=== PATIENT | male | born 1955 | race Hispanic/Latino ===

== ENCOUNTER 2018-01-13 06:51 | Day surgery (SDC) | payer OTHER ==
[2018-01-08 12:58] VITALS: BMI 37.6
[2018-01-13] MEDS ORDERED: Lidocaine 2% Inj (20ml) ONE (07:20)
[2018-01-13] MEDS ORDERED: Midazolam 2 MG/2 ML VIAL ONE ×2 (07:20→07:35)
[2018-01-13] MEDS ORDERED: Iohexol 350mgl/ml 50 ML ONE (07:21)
[2018-01-13] MEDS ORDERED: Iodixanol 320 MG/ML 200 ML BOTTLE IV ONE (07:21)
[2018-01-13 07:31] LABS: BASO # 0.03 K/mm3 (0.0-2.0); BASO % 0.4 % (0.0-3.0); EOS # 0.2 (0.0-0.7); EOS % 3.4 % (1.5-5.0); GRAN # 3.45 (1.4-6.5); GRAN % 50.8 % (50.0-68.0); HEMOGLOBIN 11.7 g/dL (14.0-18.0); LYMPH # 2.6 (1.2-3.4); LYMPH % 38.2 % (22.0-35.0); MEAN CELL VOLUME 87.5 fl (80.0-105.0); MEAN CORPUSCULAR HEMOGLOBIN 29.3 pg (25.0-35.0); MEAN CORPUSCULAR HGB CONC 33.4 g/dl (31.0-37.0); MEAN PLATELET VOLUME 10.5 fl (7.0-11.0); MONO # 0.5 (0.1-0.6); MONO % 7.2 % (1.0-6.0); RED CELL DISTRIBUTION WIDTH 13.4 % (11.5-14.5); WHITE BLOOD COUNT 6.8 10^3/ul (4.5-11.0)
[2018-01-13 07:47] LABS: INR 1.03 (0.93-1.08); PARTIAL THROMBOPLASTIN TIME 28.6 Seconds (25.1-36.5); PROTHROMBIN TIME 11.9 SECONDS (9.4-12.5)
[2018-01-13] MEDS ORDERED: Sodium Bicarbonate (8.4%) 50 Meq Syringe IVP ONE (07:58)
[2018-01-13] MEDS ORDERED: DiphenhydrAMINE 50 mg/ml Inj ONE (07:58)
[2018-01-13] MEDS ORDERED: Famotidine 20mg/50ml 20 MG/50 ML BAG IVPB ONE (07:58)
[2018-01-13 09:56] LABS: CALCIUM 8.7 mg/dL (8.4-10.5)
[2018-01-13] MEDS ORDERED: Sodium Chloride 0.9% 1,000 ML IV SCH (10:00)
[2018-01-13 10:31] VITALS: TEMP 98.1
--- NOTE | 2018-01-13 11:27 | CARD ---
APPROVED REPORT EKG Measurement Heart [id number] IA 118P3 [id number] <Conclusion> Normal sinus rhythm Q in 3,AVF-Old Inf.Wall VT. Somatic Tremors.
[2018-01-13 12:13] VITALS: RESP 18
--- NOTE | 2018-01-13 13:03 | CARDCATH ---
PROCEDURE DATE: 01/13/2018 PROCEDURES: Left heart catheterization with coronary arteriography and left ventriculogram. The right femoral artery was cannulated with 6-Azerbaijani sheath. There were no complications. I performed moderate sedation with an access services assistant observing the patient's hemodynamic and respiratory status. After giving fentanyl and Versed, my total sedation time was 15 minutes. The findings on catheterization revealed a left ventricle with the anterior wall khalida much better with an ejection fraction better than what was reported on the stress test. EF is approximately 40%. His coronary anatomy revealed a left dominant circulation. The RCA was a small vessel and free of significant disease. Left main artery was unremarkable. The LAD revealed diffuse intimal irregularities without significant stenosis. The circumflex artery in the midportion at its previous multiple stent sites was occluded. Retrograde filling of the circumflex artery was seen via collaterals. Angio-Seal was used to close the femoral artery site. The patient tolerated the procedure well. In summary, the procedure revealed an occluded mid circumflex artery, which has been manipulated and stented multiple times. His LV function is better than what was reported on the nuclear stress test. Given these findings, we will continue to treat the patient medically for his single vessel CAD. Shiva Barros MD
[2018-01-13 14:03] VITALS: BP 147/93; PULSE 101; O2SAT 93
== END 2018-01-13 16:40 | disposition home or self-care (01) ==
LOC: CATH 06:51
PROVIDERS: ATTEND Internal Medicine Cardiovascular Disease
DX: I25.10 Atherosclerotic heart disease of native coronary artery without angina pectoris (principal)
CPT/HCPCS: 36415; 80048; 85025; 85610; 85730; 86850; 86900; 93005; 93458; 99152; C1760; C1769; C2629; J1200; J1644; J1940; J2250; J2930; J3010; J7040 ×2; Q9966

== ENCOUNTER 2018-09-12 11:24 | Observation (INO) | payer BC, OTHER ==
[2018-09-12 11:41] VITALS: BMI 39.1
--- NOTE | 2018-09-12 12:07 | ED PDOC ---
Arrival/HPI - General Chief Complaint: Medical Clearance Time Seen by Provider: 09/12/18 11:27 Historian: Patient - History of Present Illness Narrative History of Present Illness (Text): 09/12/18 12:04 A 63 year old male, whose past medical history includes hypertension, CAD w/ 6 stents, diabetes, presents to the emergency department for further evaluation of abnormal EKG. 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 He states that his blood pressure was high, and Dr. Hennessy decided to do an EKG. The patient states she called Dr. Barros concerned about an abnormal EKG and he advised the patient to come into the emergency department for further evaluation. The patient is asymptomatic in the emergency department and denies fevers, chills, headache, dizziness, chest pain, shortness of breath, dyspnea on exertion, cough, abdominal pain, nausea, vomiting, diarrhea, back pain, neck pain, urinary/bowel changes, or any other complaint. PMD: Dr. Gray Housing Coordinator: Dr. Barros Physical Education Specialist: Dr. Hennessy Time/Duration: Other (Today) Symptom Onset: Sudden Symptom Course: Unchanged Activities at Onset: Rest, Light Context: Other (Physical Education Specialist's office.) Past Medical History - Provider Review Nursing Documentation Reviewed: Yes - Infectious Disease Hx of Infectious Diseases: None - Tetanus Immunization Tetanus Immunization: Unknown - Cardiac Hx Cardiac Disorders: Yes Hx Hypertension: Yes Other/Comment: Six stents - Pulmonary Hx Respiratory Disorders: No - Neurological Hx Neurological Disorder: No - HEENT Hx HEENT Disorder: Yes (TONSILECTOMY) Other/Comment: TONSILECTOMY - Renal Hx Renal Disorder: No - Endocrine/Metabolic Hx Endocrine Disorders: Yes Hx Diabetes Mellitus Type 2: Yes - Hematological/Oncological Hx Blood Disorders: No - Integumentary Hx Dermatological Disorder: No - Musculoskeletal/Rheumatological Hx Musculoskeletal Disorders: No - Gastrointestinal Hx Gastrointestinal Disorders: No - Genitourinary/Gynecological Hx Genitourinary Disorders: No - Psychiatric Hx Psychophysiologic Disorder: No Hx Substance Use: No - Surgical History Other/Comment: Six stents - Anesthesia Hx Anesthesia Reactions: No Hx Malignant Hyperthermia: No - Suicidal Assessment Feels Threatened In Home Enviroment: No Family/Social History - Physician Review Nursing Documentation Reviewed: Yes Family/Social History: No Known Family HX Smoking Status: Former Smoker Hx Alcohol Use: Yes (SOCIALLY) Frequency of alcohol use: Socially Hx Substance Use: No Hx Substance Use Treatment: No Allergies/Home Meds Allergies/Adverse Reactions: Allergies chicken Adverse Reaction (Mild, Uncoded 09/12/18 11:41) DIARRHEA Patient reports loose stools with chicken and turkey SEAFOOD Adverse Reaction (Mild, Uncoded 09/12/18 11:41) DIARRHEA turkey Adverse Reaction (Mild, Uncoded 09/12/18 11:41) DIARRHEA Home Medications: Home Meds Medication Instructions Recorded Confirmed Aspirin [Aspir 81] 81 mg PO DAILY 03/10/13 09/12/18 Atorvastatin [Lipitor] 40 mg PO DAILY 09/23/14 09/12/18 MetFORMIN [glucoPHAGE] 1,000 mg PO BID 09/23/14 09/12/18 Clopidogrel [Plavix] 75 mg PO DAILY 10/11/16 09/12/18 Furosemide [Lasix] 40 mg PO DAILY 10/11/16 09/12/18 GlipiZIDE [Glucotrol] 10 mg PO BID 10/11/16 09/12/18 Levothyroxine [Synthroid] 75 mcg PO DAILY 10/11/16 09/12/18 Lisinopril [Zestril] 10 mg PO DAILY 10/11/16 09/12/18 Multivitamin [One Daily 1 tab PO DAILY 10/11/16 09/12/18 Multivitamin] [place]-3 Fatty Acids/Fish Oil [Fish 1,000 mg PO DAILY 10/11/16 09/12/18 Oil 1,000 mg Capsule] Fenofibrate [Tricor] 145 mg PO DAILY 01/03/18 09/12/18 SITagliptin [Januvia] 100 mg PO DAILY 01/03/18 09/12/18 Fluticasone Nasal [Flonase] 1 spr NS DAILY 01/08/18 09/12/18 Review of Systems - Physician Review All systems were reviewed & negative as marked: Yes - Review of Systems Constitutional: absent: Fevers Respiratory: absent: SOB Physical Exam - Physical Exam Narrative Physical Exam (Text): 09/12/18 12:10 Constitutional: No acute distress. Head: Normocephalic. Atraumatic. Eyes: PERRL. ENT: Moist mucous membranes. Neck: Supple. Cardiovascular: Regular rate. Chest: No tenderness. Respiratory: Clear to auscultation bilaterally. GI: Soft. Nontender. Nondistended. Back: No CVA tenderness. Musculoskeletal: No tenderness of extremities. Pitting edema bilateral lower extremities. Skin: No rash. Neurologic: Alert, no focal deficit. Vital Signs Reviewed: Yes Vital Signs Temp Pulse Resp BP Pulse Ox 09/12/18 11:35 98.6 F 103 H 18 149/73 98 Temperature: Afebrile Blood Pressure: Normal Pulse: Tachycardic Respiratory Rate: Normal Appearance: Positive for: Well-Appearing, Non-Toxic, Comfortable Pain Distress: None Mental Status: Positive for: Alert and Oriented X 3 Finger Stick Blood Glucose: 170 Medical Decision Making ED Course and Treatment: 09/12/18 12:12 Impression: A 63 year old male presents to the emergency department for further evaluation s/ p abnormal EKG in shotblast operator's office. Plan: -- EKG -- Chest X-ray -- Labs -- Reassess and disposition Progress Notes: Chest X-ray Dictator : Rafa Torres MD Report Date : 09/12/2018 15:10:38 IMPRESSION: No active disease. EKG NSR 100 bpm, ST depression I and L Dr. Gray accepts patient to his service. Dr. Barros consult placed. - Lab Interpretations I have reviewed the lab results: Yes - EKG Interpretation Interpreted by ED Physician: Yes Type: 12 lead EKG - Scribe Statement The provider has reviewed the documentation as recorded by the Scribe Therese Nguyen Provider Scribe Attestation: All medical record entries made by the Scribe were at my direction and personally dictated by me. I have reviewed the chart and agree that the record accurately reflects my personal performance of the history, physical exam, medical decision making, and the department course for this patient. I have also personally directed, reviewed, and agree with the discharge instructions and disposition. Disposition/Present on Arrival - Present on Arrival Any Indicators Present on Arrival: No History of DVT/PE: No History of Uncontrolled Diabetes: No Urinary Catheter: No History of Decub. Ulcer: No History Surgical Site Infection Following: None - Disposition Have Diagnosis and Disposition been Completed?: Yes Diagnosis: Abnormal EKG Disposition: HOSPITALIZED Disposition Time: 15:10 Patient Plan: Admission Condition: FAIR
[2018-09-12 12:32] LABS: BASO # 0.03 K/mm3 (0.0-2.0); BASO % 0.4 % (0.0-3.0); EOS # 0.2 (0.0-0.7); EOS % 2.5 % (1.5-5.0); GRAN # 5.72 (1.4-6.5); GRAN % 68.2 % (50.0-68.0); HEMOGLOBIN 12.5 g/dL (14.0-18.0); LYMPH % 23.8 % (22.0-35.0); MEAN CELL VOLUME 89.3 fl (80.0-105.0); MEAN CORPUSCULAR HEMOGLOBIN 29.8 pg (25.0-35.0); MEAN CORPUSCULAR HGB CONC 33.3 g/dl (31.0-37.0); MEAN PLATELET VOLUME 11.1 fl (7.0-11.0); MONO # 0.4 (0.1-0.6); MONO % 5.1 % (1.0-6.0); RBC 4.2 10^6/uL (3.5-6.1); RED CELL DISTRIBUTION WIDTH 13.3 % (11.5-14.5); WHITE BLOOD COUNT 8.4 10^3/uL (4.5-11.0)
[2018-09-12 12:35] LABS: ALB/GLOB RATIO 1.4 (1.1-1.8); ALBUMIN 4.5 g/dL (3.0-4.8); CALCIUM 9.3 mg/dL (8.4-10.5)
[2018-09-12 12:47] LABS: TROPONIN I 0.05 ng/mL
--- NOTE | 2018-09-12 15:14 | RAD ---
Date of service: 09/12/2018 HISTORY: abnormal ekg COMPARISON: 03/04/2013 FINDINGS: LUNGS: No active pulmonary disease. PLEURA: No significant pleural effusion identified, no pneumothorax apparent. CARDIOVASCULAR: Aortic calcification Normal cardiac size. No pulmonary vascular congestion. OSSEOUS STRUCTURES: No significant abnormalities. VISUALIZED UPPER ABDOMEN: Normal. OTHER FINDINGS: None. IMPRESSION: No active disease.
--- NOTE | 2018-09-12 17:37 | CARD ---
APPROVED REPORT Date of service: 09/12/2018 EKG Measurement Heart [id number] [place] 150P30 [id number] <Conclusion> Normal sinus rhythm Left ventricular hypertrophy with repolarization abnormality Abnormal ECG
[2018-09-12] MEDS: Insulin Reg-MEDIUM-Coverage SC SCH ×2 (19:06→22:17)
--- NOTE | 2018-09-12 22:25 | HP ---
DATE OF EXAM: 09/12/2018 HISTORY OF PRESENT ILLNESS: I know Aidan very well from the office. I actually saw him this week. He has not been feeling well. Apparently, he went to the drug store, got some [id number] cough medicine, did not follow my direction to get the course rn case manager hospice office and an EKG felt his heart rate was irregular, sent him to the emergency room. I called in Dr. Barros for abnormal EKG. This is a 63-year-old white man with a history of hypertension, CAD with 6 times diabetes, morbidly obese, fairly noncompliant. He is now in the emergency room with an irregular heart rate, being sent in from the rn case manager hospice office after taking [id number] cough medicine. He has got hypertension, six stents placed, tonsillectomy, diabetes. PAST MEDICAL HISTORY: Text. FAMILY HISTORY: Unknown family history. SOCIAL HISTORY: Former smoker, still drinks alcohol. socially. No substance abuse. ALLERGIES: HE IS ALLERGIC TO SEAFOOD AND TURKEY. MEDICATIONS: He is on aspirin, Lipitor, Glucophage, Plavix, Lasix, Glucotrol, Synthroid, Zestril, multivitamin, omega-3 fatty acids, TriCor, Januvia and Flonase. REVIEW OF SYSTEMS: No fevers. No acute vision or hearing changes. No sore throat. No chest pain or palpitations. No shortness of breath. No cough. No wheeze. No abdominal pain, nausea, vomiting, constipation, diarrhea. No leg issues. No skin issues that he knows of. Not anxious. PHYSICAL EXAMINATION: GENERAL: No acute distress, resting comfortably in the ER. VITAL SIGNS: He has a temperature 98.6, pulse 103, respiratory rate 18, blood pressure 149/73, 90% O2 sat on room air. HEENT: His head is atraumatic, normocephalic. Extraocular muscles are intact. Pupils are equal and reactive to light and accommodation. Throat is moist NECK: Supple. HEART: Regular rate on the monitor starting some PVCs. LUNGS: Decreased breath sounds, but clear to auscultation. ABDOMEN: Soft, morbidly obese, nontender. Positive bowel sounds. No guarding, no rebound or CVA tenderness. EXTREMITIES: Have a trace to +1 pitting edema in bilateral lower extremities. SKIN: No rashes appreciated. LYMPH: Thyroid midline. No palpable appreciable lymphadenopathy. NEUROLOGIC: Alert, oriented x3. No issues. He is well appearing, comfortable. LABORATORY DATA: Blood sugar was 170. He had some tests done. Sodium 137, potassium 4.5, BUN 26, creatinine 1.9, little high. GFR is 36, sugar is 160, calcium 9.3, phosphorous 3, magnesium 1.9. Total bili is 0.3, AST is 32, ALT is 47, alk phos 42, total creatinine kinase 126. Troponin I is 0.05. BNP is 563. Total protein 7.7, albumin is 4.5. White count 8.4, hemoglobin 12.5, hematocrit 37.5 with platelets 310. He did not have an EKG. I ordered an EKG. Chest x-ray, no acute disease. IMPRESSION AND PLAN: There is a consult with Cardiology. His balance recesser is Dr. Barros. We will put him back on his regular medications. I will give him some insulin coverage. He will be here for observation. We will check his troponins. We will see Dr. Barros wants to do. Hopefully in the next 24 hours, his EKG will improve. He is in observation status, here for EKG changes. Davin Gray DO MTDD
[2018-09-12 23:37] VITALS: RESP 20; O2SAT 97
[2018-09-13 05:20] VITALS: TEMP 98.1
[2018-09-13] MEDS: Insulin Reg-MEDIUM-Coverage SC SCH (08:09)
[2018-09-13 08:13] LABS: HEMOGLOBIN 11.5 g/dL (14.0-18.0); MEAN CORPUSCULAR HEMOGLOBIN 28.8 pg (25.0-35.0); MEAN CORPUSCULAR HGB CONC 31.9 g/dl (31.0-37.0); MEAN PLATELET VOLUME 11.3 fl (7.0-11.0); RED CELL DISTRIBUTION WIDTH 13.4 % (11.5-14.5); WHITE BLOOD COUNT 8.3 10^3/uL (4.5-11.0)
[2018-09-13 09:47] LABS: ALB/GLOB RATIO 1.4 (1.1-1.8); ALBUMIN 4.1 g/dL (3.0-4.8); CALCIUM 9.6 mg/dL (8.4-10.5)
[2018-09-13] MEDS ORDERED: Fluticasone Nasal 50 mcg/Spray NS SCH (10:00)
[2018-09-13] MEDS ORDERED: Levothyroxine 75 MCG TAB PO SCH (10:00)
[2018-09-13] MEDS ORDERED: Omega-3-Acid Ethyl Esters 1 GM Cap PO SCH (10:00)
[2018-09-13] MEDS ORDERED: Multivitamin Therapeutic Tab PO SCH (10:00)
[2018-09-13 10:43] VITALS: BP 136/66; PULSE 94
--- NOTE | 2018-09-13 13:48 | DS ---
SUMMARY: He was sent into the hospital by another doctor for an irregular heart rate, and a EKG change. He has been here, he has been doing well. I called in Cardiology. Waiting for Cardiology to let me know if he could be discharged or not. He is in observation level of care. He is quite comfortable overall. He is eating well, walking well and no chest pain or shortness of breath. No abdominal pain. He wants to go home. OBJECTIVE: VITAL SIGNS: He has 98.7 temperature, 87 pulse, 129/78 blood pressure, 20 respiratory rate. HEENT: Head is atraumatic, normocephalic. HEART: Regular rate. LUNGS: Decreased breath sounds, but clear. ABDOMEN: Soft, nontender. Positive bowel sounds. Morbidly obese. EXTREMITIES: No edema. MEDICATIONS: He is currently on Ecotrin, Flonase, Glucophage, Glucotrol, insulin, Januvia, Lasix, Lipitor, Lovaza, Plavix, levothyroxine, Thera-Tabs, Tricor, and Zestril. LABORATORY DATA: He has 137 sodium, potassium 4.5, BUN 26, creatinine 1.9. Last blood sugar was 91. Calcium of 9.3, phosphorous 3, magnesium 1.9, total bili is 0.3, AST is 32, ALT is 47, alk phos 42, total creatinine kinase 126. The troponins are 0.05, 0.09, 0.07, 0.09, and 0.07 they are all indeterminate. IMPRESSION AND PLAN: Awaiting for cardiology to see him seen this morning. can be discharged. I will discharge him on the same medications. He is clinically stable. Davin Gray DO MTDD
== END 2018-09-13 11:38 | disposition home or self-care (01) ==
LOC: ED 11:24 → ERH 14:45 → 2RNO 22:37
PROVIDERS: ADMIT Family Medicine; ATTEND Family Medicine
DX: R94.31 Abnormal electrocardiogram [ECG] [EKG] (principal); I49.9 Cardiac arrhythmia, unspecified; I10 Essential (primary) hypertension; I25.10 Atherosclerotic heart disease of native coronary artery without angina pectoris; E11.9 Type 2 diabetes mellitus without complications; Z79.02 Long term (current) use of antithrombotics/antiplatelets; Z79.82 Long term (current) use of aspirin; Z79.890 Hormone replacement therapy; Z87.891 Personal history of nicotine dependence; Z91.19 Patient's noncompliance with other medical treatment and regimen; E66.01 Morbid (severe) obesity due to excess calories; Z68.39 Body mass index [BMI] 39.0-39.9, adult
CPT/HCPCS: 36415; 71045; 80053; 82550; 82948; 83735; 83880; 84100; 84484; 85025; 85027; 93005; 99285; G0378; J1940

== ENCOUNTER 2018-10-13 06:44 | Outpatient (CLI) | payer BC | END 2018-10-13 06:45 | disposition home or self-care (01) | LOC: CARDIO 06:44 ==